=== PATIENT | female | born 1980 | race Caucasian/White ===

== ENCOUNTER 2017-01-24 09:40 | Day surgery (SDC) | payer OTHER ==
[~2017-01-24] VITALS: Ht 154.9 cm; Wt 107.0 kg
[~2017-01-24 09:40] MED LIST: CALC-52 PO; HYDROmorphone 2 MG/ML VIAL IV PRN; IV RINGERS,LACTATED 1000ML 1,000 ML IV SCH; LIDOCAINE 1% PF 2 ML VIAL. ID PRN; MORPHINE SULFATE 2 MG/ML DISP.SYRIN. IV PRN; ONDANSETRON PF 4 MG/2 ML VIAL. IV PRN; PROAIR HFA8.5 GM INH; PROCHLORPERAZINE 10 MG/2 ML VIAL. IV PRN; fentaNYL PF VIAL 100 MCG/2 ML VIAL IV PRN
[2017-01-24] MEDS ORDERED: BUPIVACAINE MPF 0.5% 30 ML VIAL. ONE (10:27)
[2017-01-24] MEDS ORDERED: LIDOCAINE 1% PF 30 ML VIAL. ONE (10:27)
[2017-01-24] MEDS ORDERED: DEXAMETHASONE SOD PHOS 4 MG/ML VIAL ONE ×2 (10:28→10:29)
[2017-01-24] MEDS ORDERED: POVIDONE-IODINE 10% TOPICAL OINTMENT 28GM TUBE. TP ONE (10:28)
[2017-01-24 10:30] LABS: NEG OBC UR NEG; POS OBC UR POS
[2017-01-24 10:55] LABS: BASO % 1 % (0-3); EOS % 2 % (0-3); HEMATOCRIT 38.7 % (36.0-47.0); HEMOGLOBIN 12.9 g/dL (12.0-15.5); LYMPH # 1.9 x10^3/uL (1.0-4.8); LYMPH % 35 % (24-48); MEAN CORPUSCULAR HEMOGLOBIN 26 pg (25-35); MEAN CORPUSCULAR HGB CONC 33 g/dL (31-37); MEAN CORPUSCULAR VOLUME 79 fL (79-100); MONO % 7 % (0-9); NEUT % 56 % (31-73); PLATELET COUNT 269 x10^3/uL (140-400); RED CELL DISTRIBUTION WIDTH 14.2 % (11.5-14.5); WHITE BLOOD COUNT 5.3 x10^3/uL (4.0-11.0)
[2017-01-24 11:06] LABS: CALCIUM 8.6 mg/dL (8.5-10.1); CREATININE 0.8 mg/dL (0.6-1.0); GFR 81.6; POTASSIUM 3.6 mmol/L (3.5-5.1)
[2017-01-24] MEDS ORDERED: MIDAZOLAM HCL/PF 2 MG/2 ML VIAL. ONE (12:07)
[2017-01-24] MEDS ORDERED: PROPOFOL 20 ML IV ONE (12:07)
[2017-01-24] MEDS ORDERED: GLYCOPYRROLATE 1 MG/5 ML VIAL. ONE (12:34)
[2017-01-24] MEDS ORDERED: KETAMINE HCL 500 MG/10 ML VIAL. ONE (12:34)
[2017-01-24] MEDS ORDERED: PROPOFOL 50 ML IV ONE (12:34)
--- NOTE | 2017-01-24 13:11 | PDOC4 ---
OPERATIVE NOTE: Surgeon: Dedrick Preoperative DX: ganglion cyst right foot Post op DX: Same Procedure: Excision of ganglion cyst right foot Anesthesia: MAC with local Hemostasis ankle tourniquet at 250mmHg x 25 minutes EBL: 1mL Materials: 4-0 vicryl, 4-0 nylon Intraoperative findings: Findings consistent with ganglion cyst dorsal right lateral foot measures in situ 0.5x0.5cm excised en toto Patient tolerated anesthesia and procedure well. Transferred to PACU with VSS and VSI to right foot LEWIS ZULUAGA DPM Jan 24, 2017 13:11
[2017-01-24 13:34] VITALS: BP 107/77
[2017-01-24] MEDS ORDERED: IBUP-1060 PO (13:37)
[2017-01-24] MEDS ORDERED: HYDR-971 PO (13:38)
--- NOTE | 2017-01-24 13:51 | OP ---
DATE OF SURGERY: PREOPERATIVE DIAGNOSIS: Ganglion cyst, right foot. POSTOPERATIVE DIAGNOSIS: Ganglion cyst, right foot. PROCEDURE: Excision of ganglion cyst, right foot. ANESTHESIA: MAC with local. HEMOSTASIS: Right ankle tourniquet at 250 mmHg times 25 minutes. SURGEON: Corie Tse DPM ESTIMATED BLOOD LOSS: 1 mL. INDICATIONS: The patient is a 36-year-old female who was seen in the office complaining of a painful bump to the dorsal lateral aspect of the right foot. Findings were consisting with ganglion cyst and due to the pain in shoe gear and ambulation, she had failed conservative treatment of observation and accommodative padding and shoe gear modifications. Discussed with the patient possible risks, benefits and complications to include delayed healing, nonhealing, need for further surgery, possible infection, recurrence, numbness, tingling, burning, hematoma, seroma, chronic pain, DVT, pulmonary embolism. The patient signed consent freely and all questions were answered. DESCRIPTION OF PROCEDURE: The patient was transported to the operating room via a cart and placed on the operating room table in supine position. She was given 2 grams of IV Ancef preoperatively. Monitored anesthesia was administered per anesthesia and a local infiltrative block was given to the right foot just proximal to the soft tissue mass. A well-padded tourniquet was placed over the right ankle. Timeout was taken to verify the patient, surgery, and limb to be performed. The right foot was then prepped and draped in the usual aseptic manner. [place] was used to exsanguinate the right foot and the right ankle tourniquet was inflated to 250 mmHg. Attention was directed to the dorsal lateral aspect just between the fourth and fifth metatarsals mid-shaft and a lazy S incision was made just medial to the mass. Note, small vessels were cauterized and ____ safely retracted. Neurovascular bundle was safely retracted from the soft tissue mass. The mass was approximately 0.5 x 0.5 cm and was excised in toto. It did not appear to have any associated bony prominences causing this and the wound was copiously irrigated with sterile saline. The specimen was sent off to pathology and the skin was reapproximated with 4-0 Vicryl and 4-0 nylon. The postop injection was given of 1 mL of Decadron and the wound was dressed with Betadine ointment, Adaptic gauze, 4 x 4, Kerlix bandage and an Shorty bandage. The patient tolerated both anesthesia and procedure well, transported to the PACU in stable condition. She is to be minimal weightbearing, bathroom privileges only in a surgical shoe. Postop instructions are in the chart. CORIE TSE DPM DR: Dave JOB#: [id number] / [id number]
--- NOTE | 2017-01-28 11:50 | PATHOLOGY ---
PATHOLOGY REPORT * * * * * * * * FINAL DIAGNOSIS: Segment of dense fibroconnective and fibroadipose tissue, right foot: - Ganglion cyst. (JPM:zuleika; 01/28/2017) REPORT ELECTRONICALLY SIGNED BY: Kilo Hardy M.D. DATE/TIME: 01/28/2017 11:49 * * * * * * * * GROSS PATHOLOGY: Received in formalin labeled "Angelika Santos, ganglion cyst right foot," is a partially cystic piece of escalante soft tissue measuring 0.8 x 0.6 x 0.4 cm. Sectioning reveals a cystic cavity containing mucoid material. The tissue is submitted entirely in cassette A1. (SDY; 01/25/2017) INITIAL CPT CODE(S): A; 26909 Professional services performed by [facility] [place] [address] Technical services performed by [facility] at [address] [place] [address]. SPECIMEN(S) RECEIVED: A.Ganglion cyst right foot CLINICAL HISTORY: Ganglion cyst right foot PATIENT: ANGELIKA SANTOS /AGE: 1203/15/1980 (Age: 36) PATIENT #: [id number] ALT CASE #: SPECIMEN COLLECTION DATE: 01/24/2017 SPECIMEN RECEIVED DATE: 01/24/2017 [facility] - [address] [place] [address] - PHONE: [phone] * * * END OF REPORT * * *
== END 2017-01-24 14:06 | disposition home or self-care (01) ==
LOC: SURG 09:40
PROVIDERS: ATTEND Podiatrist Foot & Ankle Surgery
DX: M67.471 Ganglion, right ankle and foot (principal); J45.909 Unspecified asthma, uncomplicated; Z87.39 Personal history of other diseases of the musculoskeletal system and connective tissue; Z72.89 Other problems related to lifestyle
CPT/HCPCS: 28090; 36415; 80048; 81025; 85025; C1769; J0690; J1100; J2250; J2704; J3490